=== PATIENT | female | born 1995 | race Two or more races ===

== ENCOUNTER 2022-09-16 09:38 | Emergency (ER) | payer OTHER ==
[~2022-09-16] VITALS: Ht 144.8 cm; Wt 63.5 kg
== END 2022-09-16 14:16 | disposition home or self-care (01) ==
LOC: ER 09:38
DX: N94.6 Dysmenorrhea, unspecified (principal)

== ENCOUNTER 2022-10-20 15:24 | Emergency (ER) | payer OTHER ==
[~2022-10-20] VITALS: Ht 144.8 cm; Wt 63.0 kg
[2022-10-20] MEDS ORDERED: DAY TIME COLD-1 EAC1 PO (18:12)
== END 2022-10-20 18:24 | disposition home or self-care (01) ==
LOC: ER 15:24
DX: J00 Acute nasopharyngitis [common cold] (principal); Z20.822 Contact with and (suspected) exposure to COVID-19; J32.9 Chronic sinusitis, unspecified

== ENCOUNTER 2022-10-25 16:10 | Emergency (ER) | payer OTHER ==
[~2022-10-25] VITALS: Ht 154.9 cm; Wt 59.0 kg
[~2022-10-25 16:10] MED LIST: DAY TIME COLD-1 EAC1 PO
== END 2022-10-25 18:23 | disposition home or self-care (01) ==
LOC: ER 16:10
DX: J32.9 Chronic sinusitis, unspecified (principal)

== ENCOUNTER 2023-01-08 20:33 | Emergency (ER) | payer OTHER ==
[~2023-01-08] VITALS: Ht 144.8 cm; Wt 61.2 kg
[2023-01-08 22:05] LABS: HEMATOCRIT 40.4 % (36.0-45.00); HEMOGLOBIN 13.1 g/dL (12.0-15.00); MEAN CELL VOLUME 86.5 fL (80.00-100.00); MEAN CORPUSCULAR HEMOGLOBIN 28.1 pg (27.00-32.0); MEAN CORPUSCULAR HGB CONC 32.5 g/dl (32.0-36.0); PLATELET COUNT 265 K/uL (150-450); RED BLOOD COUNT 4.67 M/uL (4.00-6.00)
== END 2023-01-08 23:44 | disposition home or self-care (01) ==
LOC: ER 20:33 → EMR PED 20:47 → ER 23:44
PROVIDERS: General Practice
DX: J06.9 Acute upper respiratory infection, unspecified (principal); Z20.822 Contact with and (suspected) exposure to COVID-19

== ENCOUNTER 2023-07-13 19:44 | Emergency (ER) | payer OTHER ==
[~2023-07-13] VITALS: Ht 144.8 cm; Wt 66.7 kg
[2023-07-13 23:10] LABS: HEMATOCRIT 40.5 % (36.0-45.00); HEMOGLOBIN 13.8 g/dL (12.0-15.00); MEAN CORPUSCULAR HEMOGLOBIN 29.2 pg (27.00-32.0); MEAN CORPUSCULAR HGB CONC 33.9 g/dl (32.0-36.0); PLATELET COUNT 312 K/uL (150-450); RED BLOOD COUNT 4.71 M/uL (4.00-6.00)
[2023-07-13 23:23] LABS: ALBUMIN 3.6 gm/dL (3.4-5.0); BILIRUBIN TOTAL 0.77 mg/dL (0.3-1.2); CALCIUM 9.2 mg/dL (8.5-10.1); CREATININE SERUM 0.76 mg/dL (0.55-1.02); GFR 89.36; GLOBULINA 3.5 G/DL (2.4-3.5); POTASSIUM 3.71 mEq/L (3.5-5.1); TOTAL PROTEIN 7.1 gm/dL (6.4-8.2)
[2023-07-14 01:16] LABS: URINE BACTERIA 59.2 uL (0.0-1933); URINE EPITHELIAL CELLS 27.4 uL (0.0-38.8); URINE RBC 107.3 uL (0.0-20.8); URINE WBC 6.4 uL (0.0-23.2)
[2023-07-14 01:24] LABS: URINE APPEARANCE Clear; URINE BILIRRUBIN Small (NEGATIVE); URINE BLOOD Moderate; URINE COLOR Dark Yellow; URINE GLUCOSE Negative (NEGATIVE); URINE LEUKOCYTE Negative; URINE NITRATE Negative; URINE PROTEIN 30 (NEGATIVE)
== END 2023-07-14 03:15 | disposition home or self-care (01) ==
LOC: ER 19:44
PROVIDERS: Emergency Medicine
DX: O03.89 Complete or unspecified spontaneous abortion with other complications (principal); R10.9 Unspecified abdominal pain; G43.809 Other migraine, not intractable, without status migrainosus; Z20.822 Contact with and (suspected) exposure to COVID-19